=== PATIENT | male | born 1945 | race Caucasian/White ===

== ENCOUNTER 2019-11-02 16:05 | Emergency (ER) | payer MEDICAID ==
[~2019-11-02] VITALS: Ht 188 cm; Wt 85.9 kg
[2019-11-02] MEDS ORDERED: PERCOCET 7.5-31 EAC1 PO (16:23)
[2019-11-02] MEDS ORDERED: ELIQUIS2.5 MG PO (16:23)
[2019-11-02] MEDS ORDERED: FLOMAX0.4 MG PO (16:24)
[2019-11-02] MEDS ORDERED: BLOOD PRESSURE MED (16:24)
[2019-11-02 17:16] VITALS: BP 125/70
== END 2019-11-02 17:16 | disposition home or self-care (01) ==
LOC: M.ERS 16:05
DX: S09.90XA Unspecified injury of head, initial encounter (principal); S19.9XXA Unspecified injury of neck, initial encounter; I10 Essential (primary) hypertension; I48.91 Unspecified atrial fibrillation; J44.9 Chronic obstructive pulmonary disease, unspecified; W10.8XXA Fall (on) (from) other stairs and steps, initial encounter; Y93.89 Activity, other specified; Y92.89 Other specified places as the place of occurrence of the external cause; Y99.8 Other external cause status